=== PATIENT | female | born 1930 | race Caucasian/White ===

== ENCOUNTER 2017-03-18 09:59 | Inpatient (IN) ==
--- NOTE | 2017-03-18 10:29 | Emergency Department Note ---
Disposition Clinical Impression: Hypoxia, Influenza, Thyroid nodule Pneumonia Qualifiers: Pneumonia type: due to unspecified organism Laterality: unspecified laterality Lung location: unspecified part of lung Qualified Code(s): J18.9 - Pneumonia, unspecified organism UTI (urinary tract infection) Qualifiers: Urinary tract infection type: site unspecified Hematuria presence: without hematuria Qualified Code(s): N39.0 - Urinary tract infection, site not specified Disposition: Admitted As Inpatient Condition: Fair Time of Disposition: 13:57 General Adult HPI - General Chief complaint: ED Fever Stated complaint: MEKA,Congestion,Nausea Time Seen by Provider: 03/18/17 10:20 Source: patient Mode of arrival: ambulatory Limitations: no limitations Nursing Notes Reviewed: Yes Vital Signs Reviewed: Yes - History of Present Illness HPI Narrative: 86-year-old female otherwise healthy presents for evaluation of shortness of breath and congestion. Patient states that she has had upper respiratory congestion and runny nose for the past 3 or 4 days. Patient states she has had subjective fevers. States she feels warm. Patient states that she feels more congested. Denies any chest pain. Reports some shortness of breath related to congestion. No cough. States that she does have sick contacts with the flu. Patient denies any vomiting but states that she has felt nauseous at times. Patient denies any abdominal pain. States she is able to tolerate an oral diet. Pain Scale: 0 - Related Data Home Medications Medication Instructions Recorded Confirmed Amiloride/Hydrochlorothiazide 1 tab PO DAILY 03/18/17 03/18/17 [Amiloride HCl-Hctz 5-50 mg Tab] Aspirin [Lo-Dose Aspirin EC] 81 mg PO DAILY 03/18/17 03/18/17 Ca/D3/Mag#11/Zinc/[employer]/Seth/Bor 1 tab PO BID 03/18/17 03/18/17 [Caltrate 600+D Plus Tablet] Cholecalciferol (D-3) [Vitamin D] 1,000 unit PO DAILY 03/18/17 03/18/17 Gabapentin [Neurontin] 100 mg PO HS 03/18/17 03/18/17 HYDROcodone/Acet 5/325 mg [[place] 1 tab PO TID PRN 03/18/17 03/18/17 5-325 mg] Meloxicam [Mobic] 15 mg PO DAILY 03/18/17 03/18/17 Potassium Chloride [Klor-Con 10 meq PO DAILY 03/18/17 03/18/17 Sprinkle] Vitamin B Complex [B Complex] 1 tab PO DAILY 03/18/17 03/18/17 Allergies Allergy/AdvReac Type Severity Reaction Status Date / Time No Known Allergies Allergy Verified 03/18/17 10:30 All systems ED: reviewed and negative except as stated. Constitutional: Reports: as per HPI, fever Eyes: Reports: as per HPI ENT ED: Reports: as per HPI, congestion Cardiovascular: Reports: as per HPI. Denies: chest pain Respiratory: Reports: as per HPI, dyspnea. Denies: cough Gastrointestinal: Reports: as per HPI, nausea. Denies: abdominal pain, vomiting Genitourinary: Reports: as per HPI Musculoskeletal: Reports: as per HPI Integumentary: Reports: as per HPI Neurological: Reports: as per HPI. Denies: weakness Psychiatric: Reports: as per HPI Endocrine: Reports: as per HPI Hematological/Lymphatic: Reports: as per HPI Past Medical History - Past Medical History Medical history: Reports: osteoporosis Surgical history: Reports: cholecystectomy, hip replacement, hysterectomy, thyroidectomy Psychiatric history: Reports: no psych history - Social History Smoking Status: Never smoker Smokeless Tobacco Status: No Alcohol use: Reports: none Drug use: Reports: none Physical Exam - General Limitations: no limitations General appearance: alert, in no apparent distress - Head Head exam: atraumatic, normocephalic, normal inspection - Eye Eye exam: Present: normal appearance, EOMI - ENT ENT exam: normal exam, mucous membranes moist - Neck Neck exam: Present: normal inspection - Chest Chest inspection: Present: normal inspection, symmetric chest wall rise - Respiratory Respiratory exam: Present: normal lung sounds bilaterally. Absent: respiratory distress - Cardiovascular Cardiovascular exam: Present: regular rate, normal rhythm. Absent: systolic murmur - Abdominal Exam Abdominal exam: Present: soft, Non-Tender - Extremities Exam Extremities exam: Present: normal inspection. Absent: pedal edema - Expanded Lower Extremity Exam Neurovascular/Tendon exam: Present: normal capillary refill - Neurological Exam Neurological exam: Present: alert, oriented X3, CN II-XII intact - Skin Skin exam: Present: warm, dry, intact, normal color Course Course Narrative: Patient seen and examined. Patient does not appear to be in any acute distress. Patient does not have a unremarkable past history. Patient reports congestion and URI symptoms for the past couple days. Patient is not requiring any oxygen supplementation. Patient will get a chest x-ray, EKG basic lab work. Disposition likely home. - Reevaluation(s) Reevaluation #1: Patient seen and examined. Saturation 89-91% on room air. Patient's not on oxygen at home. Patient will get a CT of the chest. Time: 11:12 Reevaluation #2: Patient seen and examined. Patient is resting comfortably. Patient's influenza A is positive. Patient is given Tamiflu. Patient also started on a gram of Rocephin IV given urinary tract findings. Time: 12:24 Vital Signs Temperature 98.9 F 03/18/17 10:13 Pulse Rate 92 03/18/17 10:13 Respiratory Rate 16 03/18/17 10:13 Blood Pressure 115/73 03/18/17 10:13 O2 Sat by Pulse Oximetry 93 03/18/17 10:13 Temperature 98.9 F 03/18/17 10:13 Pulse Rate 83 03/18/17 13:40 Respiratory Rate 20 03/18/17 14:15 Blood Pressure 142/80 03/18/17 14:15 O2 Sat by Pulse Oximetry 99 03/18/17 13:40 Oxygen Delivery Oxygen Delivery Nasal Cannula Medical Decision Making - MDM Narrative Medical decision making narrative: 86-year-old female presents for evaluation of dyspnea. Patient was hypoxic on room air. Patient is on have oxygen at home. Patient's EGD evaluation shows influenza A with suspected pneumonia. The patient's urinalysis also signs of infection. Patient was started on Rocephin as well as doxycycline. Patient was also given Tamiflu. Patient had a room air trial and was hypoxic to 83%. Given the fact the patient does not require oxygen at baseline and has no oxygen at home patient will be admitted to the hospitalist service for further care and monitoring. - Lab Data Lab results reviewed: Yes I reviewed the patient's lab results. Result diagrams: 03/18/17 10:34 03/18/17 10:34 Lab Results 03/18/17 03/18/17 03/18/17 Range/Units 10:34 10:34 10:34 WBC 13.1 H (4.3-11.1) K/mcL RBC 4.92 (3.82-4.97) M/mcL Hgb 15.0 (11.5-15.4) g/dL Hct 45.0 H (35.3-44.9) % MCV 91.5 (83.0-100.0) fL MCH 30.5 (28.0-33.3) pg MCHC 33.3 (31.6-35.5) g/dL RDW 13.4 (11.5-14.5) % Plt Count 272 (140-400) K/mcL MPV 8.9 L (9.4-12.4) fL Immature Gran % 0.8 (0-4) % Seg Neutrophils % 87.0 % Lymphocytes % 5.7 % Monocytes % 6.1 % Eosinophils % 0.1 % Basophils % 0.3 % Neutrophils # 11.4 H (1.6-8.9) K/mcL Lymphocytes # 0.8 (0.6-4.6) K/mcL Monocytes # 0.8 (0.0-1.3) K/mcL Eosinophils # 0.0 (0.0-0.6) K/mcL Basophils # 0.0 (0.0-0.2) K/mcL Sodium 135 L (136-145) mEq/L Potassium 3.4 L (3.5-5.1) mEq/L Chloride 96 L (98-107) mEq/L Carbon Dioxide 29 (23-29) mEq/L BUN 17 (8-23) mg/dL Creatinine 0.85 (0.60-1.20) mg/dL Est GFR ( Amer) > 60 (> 60) Est GFR (Non-Af Amer) > 60 (> 60) BUN/Creatinine Ratio 20 (6-26) Glucose 120 H (70-105) mg/dL Calculated Osmolality 283 (280-300) Calcium 9.9 (8.6-10.3) mg/dL Troponin I < 0.03 (< 0.04) ng/mL B-Natriuretic Peptide (Less than 100) pg/mL Urine Color (Yellow) Urine Clarity (Clear) Urine pH (5.0-8.0) pH Units Ur Specific [place] (1.010-1.025) Urine Protein (Neg-Trace) mg/dL Urine Glucose (UA) (Normal) mg/dL Urine Ketones (Negative) mg/dL Urine Blood (Negative) Urine Nitrite (Negative) Urine Bilirubin (Negative) Urine Urobilinogen (Normal) mg/dL Ur Leukocyte Esterase (Negative) Urine Microscopic RBC (0-3) per hpf Urine Microscopic WBC (0-3) per hpf Ur Squamous Epith Cells (None-Few) per lpf Urine Bacteria (None-Few) per hpf 03/18/17 03/18/17 Range/Units 10:34 11:41 WBC (4.3-11.1) K/mcL RBC (3.82-4.97) M/mcL Hgb (11.5-15.4) g/dL Hct (35.3-44.9) % MCV (83.0-100.0) fL MCH (28.0-33.3) pg MCHC (31.6-35.5) g/dL RDW (11.5-14.5) % Plt Count (140-400) K/mcL MPV (9.4-12.4) fL Immature Gran % (0-4) % Seg Neutrophils % % Lymphocytes % % Monocytes % % Eosinophils % % Basophils % % Neutrophils # (1.6-8.9) K/mcL Lymphocytes # (0.6-4.6) K/mcL Monocytes # (0.0-1.3) K/mcL Eosinophils # (0.0-0.6) K/mcL Basophils # (0.0-0.2) K/mcL Sodium (136-145) mEq/L Potassium (3.5-5.1) mEq/L Chloride (98-107) mEq/L Carbon Dioxide (23-29) mEq/L BUN (8-23) mg/dL Creatinine (0.60-1.20) mg/dL Est GFR ( Amer) (> 60) Est GFR (Non-Af Amer) (> 60) BUN/Creatinine Ratio (6-26) Glucose (70-105) mg/dL Calculated Osmolality (280-300) Calcium (8.6-10.3) mg/dL Troponin I (< 0.04) ng/mL B-Natriuretic Peptide 137 H (Less than 100) pg/mL Urine Color Dark Yellow (Yellow) Urine Clarity Cloudy A (Clear) Urine pH 6.0 (5.0-8.0) pH Units Ur Specific [place] 1.024 (1.010-1.025) Urine Protein 30 H (Neg-Trace) mg/dL Urine Glucose (UA) Normal (Normal) mg/dL Urine Ketones 40 H (Negative) mg/dL Urine Blood Large H (Negative) Urine Nitrite Positive A (Negative) Urine Bilirubin Moderate H (Negative) Urine Urobilinogen Normal (Normal) mg/dL Ur Leukocyte Esterase Moderate H (Negative) Urine Microscopic RBC 15-30 H (0-3) per hpf Urine Microscopic WBC TNTC H (0-3) per hpf Ur Squamous Epith Cells Many H (None-Few) per lpf Urine Bacteria Many H (None-Few) per hpf - Radiology Data Radiology results reviewed: Yes I reviewed the patient's radiology results. Chest X-Ray 03/18/17 10:26 IMPRESSION: No acute cardiopulmonary disease. D/ / John Webber MD / John Webber MD Interpreting Provider: John Webber MD Chest CTA 03/18/17 11:11 IMPRESSION: 1. No CT evidence of a pulmonary embolism. 2. Nonspecific elevation of the right hemidiaphragm causing chronic compressive atelectasis within the right middle and right lower lobes. 3. Additional airspace consolidation within the inferior lingula and basilar aspect of left lower lobe likely reflects atelectasis, less likely pneumonia. 4. Scattered nonspecific ground-glass opacity throughout both lungs, with a mosaic attenuation, could represent either atelectasis, asymmetric edema, or possibly chronic small airways disease. 5. Heterogeneous enlarged right thyroid lobe containing a 2.5 cm heterogeneous low-attenuation nodule. Suggest further characterization with a follow-up thyroid ultrasound, as advised below. RECOMMENDATIONS: Managing Incidental Thyroid Nodule Detected at CT or MRI or US 1. Further evaluation by thyroid Ultrasound recommended for these incidental nodules: Patient Age 18 years or less - Any nodule. Patient Age 19-34 years old - Nodule 1 cm in size or greater PATIENT AGE 35 YEARS OR MORE - NODULE 1.5 CM IN SIZE OR GREATER 2. Follow up thyroid ultrasound also recommend in these scenarios -Solitary nodule with high risk imaging features (locally invasive nodule or suspicious lymph nodes) -Any nodule in a heterogeneous enlarged thyroid gland 3. NO further imaging is recommended in the following scenarios -No f/u imaging is recommended for ITNs not meeting the above criteria. -No US or f/u recommended for ITNs without high risk features in pts. with limited life expectancy or significant co-morbidities, unless clinically warranted. Note: These recommendations do not apply to pts. w/ increased risk for thyroid cancer or pts. with symptomatic thyroid disease. Recommendations for f/u of Incidental Thyroid Nodules (ITN) found on CT, MR, NM and Extrathyroidal US are based upon the ACR white paper and Srinivasan 3-tiered system for managing ITNs: J Am Areli Radiol. 2015 Apr;12(2): 143-50 D/ / 03/18/2017 13:11:37 Michael Stokes MD / allen Interpreting Provider: Michael Stokes MD - EKG Data EKG #1 EKG shows normal: sinus rhythm Rate: normal Rhythm: NSR [place]/QRS: left axis deviation Q waves: aVR Interpretation: no acute changes, nonspecific ST-T wave changes S.[email or web address] - [email or web address] Situation: Demographics Background: Presenting Complaint Assessment: Vital Signs, Course and respsone to treatment, Patient/Family Expectation Recommendation: Barrier(s) to disposition, Recommendation based on pending studies, treatments, or consults S.[email or web address] Report Given to: Dr. Connor PenningtonAMeagan Repor Time: 13:56
[2017-03-18 10:39] LABS: Basophils % 0.3 %; Eosinophils % 0.1 %; Immature Granulocytes % 0.8 % (0-4); Lymphocytes # 0.8 K/mcL (0.6-4.6); Lymphocytes % 5.7 %; Mean Corpuscular HGB Conc 33.3 g/dL (31.6-35.5); Mean Corpuscular Hemoglobin 30.5 pg (28.0-33.3); Mean Corpuscular Volume 91.5 fL (83.0-100.0); Mean Platelet Volume 8.9 fL (9.4-12.4); Monocytes # 0.8 K/mcL (0.0-1.3); Monocytes % 6.1 %; Neutrophils # 11.4 K/mcL (1.6-8.9); Platelet Count 272 K/mcL (140-400); Red Blood Count 4.92 M/mcL (3.82-4.97); Red Cell Distribution Width 13.4 % (11.5-14.5)
[2017-03-18 10:56] LABS: BUN/Creatinine Ratio 20 (6-26); Blood Urea Nitrogen 17 mg/dL (8-23); Calcium 9.9 mg/dL (8.6-10.3); Carbon Dioxide 29 mEq/L (23-29); Chloride 96 mEq/L (98-107); Glucose 120 mg/dL (70-105); Osmolality,Calculated 283 (280-300); Potassium 3.4 mEq/L (3.5-5.1); Sodium 135 mEq/L (136-145); eGFR For African Americans > 60 (> 60); eGFR For Non-African Americans > 60 (> 60)
[2017-03-18] MEDS ORDERED: 0.9 % Sodium Chloride 500 ML IVC ONE (11:11)
[2017-03-18 11:47] LABS: Bilirubin,Urine Moderate (Negative); Blood,Urine Large (Negative); Clarity,Urine Cloudy (Clear); Color,Urine Dark Yellow (Yellow); Glucose,Urine (UA) Normal (Normal); Ketones,Urine 40 mg/dL (Negative); Leukocyte Esterase,Urine Moderate (Negative); Nitrite,Urine Positive (Negative); Protein,Urine 30 mg/dL (Neg-Trace); Specific Gravity,Urine 1.024 (1.010-1.025); Urobilinogen,Urine Normal (Normal)
[2017-03-18 11:48] LABS: Bacteria,Urine Many per hpf (None-Few); Squamous Epithelial Cell,Urine Many per lpf (None-Few); WBC,Urine TNTC per hpf (0-3)
[2017-03-18 12:00] LABS: RBC,Urine 15-30 per hpf (0-3)
[2017-03-18] MEDS ORDERED: cefTRIAXone 1,000 MG in Water for inj. (sterile) 20 ML 10 ML IVP ONE (12:08)
[2017-03-18] MEDS ORDERED: Ipratropium/Albuterol Neb 3 ML IH ONE (13:17)
[2017-03-18] MEDS ORDERED: Doxycycline 100 MG in 0.9 % Sodium Chloride Mini Bag 100 ML IVPB ONE (13:17)
--- NOTE | 2017-03-18 15:25 | Internal Med History&Physical ---
Date of Encounter: 03/18/17 Time of Encounter: 15:00 Assessment and Plan (1) Hypoxia Current visit: Yes Status: Acute Pt requiring supplemental 02, does not wear 02 normally. Currently with pneumonia and influenza Titrate as needed to maintain sats > 92%. (2) Influenza Current visit: Yes Status: Acute Pt reports 3-4 day history of overall "not feeling well", rhinorrhea, frontal headache, bilateral lacrimation. Pt reports feeling hot yesterday, but denies taking temperature or fever. She denies body aches, chills. Onset of nausea today, no emesis. Positive for Influenza A. Will not start Tamiflu due to length of time from onset to presentation and diagnosis. (3) Pneumonia Current visit: Yes Status: Acute Pt with probable pneumonia within the inferior lingula LLL. Lungs are clear and diminished throughout. Pt with rhinorrhea, lacrimation, and frontal headache. Pt also positive for flu A. Pt with acute respiratory failure, is requiring supplemental 02. Pt on Rocephin for UTI. She has not been hospitalized so this is CAP. Mild leukocytosis, no fever, she denies fever at home. Duonebs scheduled. Continue IV antibiotics 02 as needed to maintain sats > 92%. Chest X-Ray 03/18/17 10:26 IMPRESSION: No acute cardiopulmonary disease. D/ / John Webber MD / John Webber MD Interpreting Provider: John Webber MD Chest CTA 03/18/17 11:11 IMPRESSION: 1. No CT evidence of a pulmonary embolism. 2. Nonspecific elevation of the right hemidiaphragm causing chronic compressive atelectasis within the right middle and right lower lobes. 3. Additional airspace consolidation within the inferior lingula and basilar aspect of left lower lobe likely reflects atelectasis, less likely pneumonia. 4. Scattered nonspecific ground-glass opacity throughout both lungs, with a mosaic attenuation, could represent either atelectasis, asymmetric edema, or possibly chronic small airways disease. 5. Heterogeneous enlarged right thyroid lobe containing a 2.5 cm heterogeneous low-attenuation nodule. Suggest further characterization with a follow-up thyroid ultrasound, as advised below. RECOMMENDATIONS: Managing Incidental Thyroid Nodule Detected at CT or MRI or US 1. Further evaluation by thyroid Ultrasound recommended for these incidental nodules: Patient Age 18 years or less - Any nodule. Patient Age 19-34 years old - Nodule 1 cm in size or greater PATIENT AGE 35 YEARS OR MORE - NODULE 1.5 CM IN SIZE OR GREATER 2. Follow up thyroid ultrasound also recommend in these scenarios -Solitary nodule with high risk imaging features (locally invasive nodule or suspicious lymph nodes) -Any nodule in a heterogeneous enlarged thyroid gland 3. NO further imaging is recommended in the following scenarios -No f/u imaging is recommended for ITNs not meeting the above criteria. -No US or f/u recommended for ITNs without high risk features in pts. with limited life expectancy or significant co-morbidities, unless clinically warranted. Note: These recommendations do not apply to pts. w/ increased risk for thyroid cancer or pts. with symptomatic thyroid disease. Recommendations for f/u of Incidental Thyroid Nodules (ITN) found on CT, MR, NM and Extrathyroidal US are based upon the ACR white paper and Srinivasan 3-tiered system for managing ITNs: J Am Areli Radiol. 2015 Apr;12(2): 143-50 D/ : / 03/18/2017 13:11:37 Michael Stokes MD / allen Interpreting Provider: Michael Stokes MD Qualifiers: Pneumonia type: due to unspecified organism Laterality: unspecified laterality Lung location: unspecified part of lung Qualified Code(s): J18.9 - Pneumonia, unspecified organism (4) UTI (urinary tract infection) Current visit: Yes Status: Acute Urine positive for UTI. Pt denies symptoms. Rocephin 1 gram IV Culture pending, adjust antibiotic as needed based on sensitivity results. Qualifiers: Urinary tract infection type: site unspecified Hematuria presence: without hematuria Qualified Code(s): N39.0 - Urinary tract infection, site not specified (5) Thyroid nodule Current visit: Yes Status: Acute 2.5 cm nodule found on CT chest. Pt reports prior thyroid surgery but is unable to remember what it was. It is defined as a heterogeneous low-attenuation nodule. Suggest further characterization with a follow-up thyroid ultrasound. (6) DVT prophylaxis Current visit: Yes Status: Acute Heparin SQ BID Internal Medicine - H&P: HPI History of present illness: Ms. Magana is a 86 year old female Past Med Surg Social Fam HX - Past Medical History Medical history: osteoporosis Psychiatric history: no psych history - Past Surgical History Surgical History: cholecystectomy, hip replacement, hysterectomy, thyroidectomy - Social History Smoking Status: Never smoker Smokeless Tobacco Status: No Alcohol use: none Drug use: none - Family History Mother Living Status: Hx Family Cardiac Disorders: Yes Hx Family Endocrine Disorder: Yes Internal Medicine - H&P: Meds Amiloride/Hydrochlorothiazide [Amiloride HCl-Hctz 5-50 mg Tab] 1 tab PO DAILY [History] Aspirin [Lo-Dose Aspirin EC] 81 mg PO DAILY 03/18/17 [History] Ca/D3/Mag#11/Zinc/[employer]/Seth/Bor [Caltrate 600+D Plus Tablet] 1 tab PO BID [History] Cholecalciferol (D-3) [Vitamin D] 1,000 unit PO DAILY 03/18/17 [History] Gabapentin [Neurontin] 100 mg PO HS 03/18/17 [History] HYDROcodone/Acet 5/325 mg [[place] 5-325 mg] 1 tab PO TID PRN 03/18/17 [History] Meloxicam [Mobic] 15 mg PO DAILY 03/18/17 [History] Potassium Chloride [Klor-Con Sprinkle] 10 meq PO DAILY 03/18/17 [History] Vitamin B Complex [B Complex] 1 tab PO DAILY 03/18/17 [History] 3 Allergy/AdvReac Type Severity Reaction Status Date / Time No Known Allergies Allergy Verified 03/18/17 10:30 All Systems PM: A 10-system review of systems was performed and is negative for pertinent findings except as documented above in the HPI. - Constitutional Constitutional: fatigue, malaise - EENT Eyes: no change in vision, no pain Ears: no ear pain, no tinnitus Nose, mouth and throat: nasal congestion, nasal discharge, post-nasal drip, sinus pain, sinus pressure, no facial pain, no hoarseness, no nose pain, no sore throat - Cardiovascular Cardiovascular ROS IM: no dyspnea, no lightheadedness, no palpitations - Respiratory Respiratory: chest congestion, no hemoptysis, no dyspnea on exertion, no excessive phlegm production, no pain with cough - Gastrointestinal Gastrointestinal: nausea, no constipation, no cramping, no diarrhea, no heartburn - Genitourinary Genitourinary: no dysuria, no urinary frequency, no urinary hesitancy, no urinary incontinence, no urinary urgency - Musculoskeletal Musculoskeletal ROS IM: myalgias, no back pain, no muscle weakness, no numbness , no stiffness - Neurological Neurological ROS: headache(s), no frequent falls, no numbness, no tingling, no weakness - Constitutional Vitals: Temp Pulse Resp BP Pulse Ox 98.9 F 83 20 142/80 99 03/18/17 10:13 03/18/17 13:40 03/18/17 14:15 03/18/17 14:15 03/18/17 13:40 General appearance: Present: cooperative, A&O X 3, pleasant, no acute distress, answers questions appropriately - Head Head exam: Present: atraumatic, normal inspection, normocephalic - Eye Eye exam: Present: normal appearance, conjuntiva pink, sclera anicteric - Neck Neck exam general surgery: Present: normal inspection, supple, trachea midline. Absent: lymphadenopathy, tenderness, thyromegaly - Respiratory Respiratory exam: Present: CTAB. Absent: accessory muscle use, chest wall tenderness, rales, respiratory distress, rhonchi, wheezes - Cardiovascular Cardiovascular exam: Present: RRR, +S1, +S2. Absent: diastolic murmur, gallop, rubs, systolic murmur - GI/Abdominal GI/Abdominal exam: Present: normal bowel sounds, soft. Absent: distended, hepatomegaly, tenderness - Extremities Exam Extremities exam: Present: normal capillary refill, normal inspection, warm, radial pulses palpable and symmetrical. Absent: calf tenderness, cyanotic, pedal edema, tenderness - Neurological Exam Neurological exam: Present: alert, oriented X3, no focal deficits. Absent: facial droop, speech deficit - Skin Skin exam: Present: dry, intact, normal color, warm. Absent: rash Internal Med - H&P Results - Labs CBC & Chem 7: 03/18/17 10:34 03/18/17 10:34
[2017-03-18] MEDS ORDERED: MOM Conc 10 ML UD.LIQ PO PRN (16:12)
[2017-03-18] MEDS ORDERED: Ondansetron 4 MG/2 ML VIAL IVP PRN (16:12)
[2017-03-18] MEDS ORDERED: Acetaminophen 325 MG TABLET PO PRN (16:12)
[2017-03-18] MEDS ORDERED: Naloxone 0.4 MG/ML INJ IVP PRN (16:12)
[2017-03-18] MEDS ORDERED: Mag Hydrox/Al Hydrox/Simeth 30 ML UDC PO PRN (16:12)
[2017-03-18] MEDS ORDERED: *HR* HYDROcodone/Acet 5/325 mg TABLET PO PRN ×2 (16:16→17:18)
[2017-03-18] MEDS: Azithromycin 500 MG in D5% in Water 250 ML IVPB SCH (16:58)
[2017-03-18] MEDS: Gabapentin 100 MG CAPSULE PO SCH (19:34)
[2017-03-19 04:14] LABS: Basophils % 0.5 %; Eosinophils # 0.1 K/mcL (0.0-0.6); Hematocrit 40.6 % (35.3-44.9); Immature Granulocytes % 0.6 % (0-4); Lymphocytes # 1.1 K/mcL (0.6-4.6); Lymphocytes % 13.1 %; Mean Corpuscular HGB Conc 32.8 g/dL (31.6-35.5); Mean Corpuscular Hemoglobin 30.1 pg (28.0-33.3); Mean Corpuscular Volume 91.9 fL (83.0-100.0); Mean Platelet Volume 8.9 fL (9.4-12.4); Monocytes # 0.9 K/mcL (0.0-1.3); Monocytes % 11.2 %; Platelet Count 219 K/mcL (140-400); Red Blood Count 4.42 M/mcL (3.82-4.97); Red Cell Distribution Width 13.7 % (11.5-14.5); Segmented Neutrophils % 73.6 %
[2017-03-19 04:15] LABS: Hemoglobin 13.3 g/dL (11.5-15.4)
[2017-03-19 04:35] LABS: BUN/Creatinine Ratio 21 (6-26); Blood Urea Nitrogen 14 mg/dL (8-23); Calcium 8.8 mg/dL (8.6-10.3); Carbon Dioxide 32 mEq/L (23-29); Chloride 101 mEq/L (98-107); Glucose 86 mg/dL (70-105); Osmolality,Calculated 290 (280-300); Potassium 2.9 mEq/L (3.5-5.1); Sodium 140 mEq/L (136-145); eGFR For African Americans > 60 (> 60); eGFR For Non-African Americans > 60 (> 60)
[2017-03-19] MEDS: cefTRIAXone 1,000 MG in Water for inj. (sterile) 10 ML IVP SCH (07:47)
[2017-03-19] MEDS: Vitamin B Complex/Vit C/Vit E 1 EACH TABLET PO SCH (07:48)
[2017-03-19] MEDS: Aspirin Enteric Coated 81 MG Tablet PO SCH (07:48)
[2017-03-19] MEDS: Cholecalciferol (D-3) 1,000 UNIT TABLET PO SCH (07:48)
--- NOTE | 2017-03-19 15:39 | Internal Med Progress Note ---
Date of Encounter: 03/19/17 Time of Encounter: 15:36 - Assessment and plan (1) Hypoxia Current Visit: Yes Status: Acute Assessment and plan: resolved, now on room air (2) Influenza Current Visit: Yes Status: Acute Assessment and plan: doing well, not on tamiflu (3) Pneumonia Current Visit: Yes Status: Acute Assessment and plan: continue azithromycin and ceftriaxone Qualifiers: Pneumonia type: due to unspecified organism Laterality: unspecified laterality Lung location: unspecified part of lung Qualified Code(s): J18.9 - Pneumonia, unspecified organism (4) Thyroid nodule Current Visit: Yes Status: Chronic Assessment and plan: follow up with PCP (5) UTI (urinary tract infection) Current Visit: Yes Status: Acute Assessment and plan: UA shwed UTI, on ceftriaxone Qualifiers: Urinary tract infection type: site unspecified Hematuria presence: without hematuria Qualified Code(s): N39.0 - Urinary tract infection, site not specified (6) DVT prophylaxis Current Visit: Yes Status: Acute Assessment and plan: on heparin SC (7) Hypokalemia Current Visit: Yes Status: Acute Assessment and plan: repalced by oral lwill follow up am - Time Spent With Patient 25 - 35 minutes - Subjective Interval history: 86-year-old female otherwise healthy presents for evaluation of shortness of breath and congestion. Patient states that she has had upper respiratory congestion and runny nose for the past 3 or 4 days. patient stated that her son was sick from Flu weeks ago, then she started to cough. She feels much better now. she is on room air, afebrile. - Constitutional Vitals: Temp Pulse Resp BP Pulse Ox 98.5 F 73 16 131/84 92 03/19/17 15:28 03/19/17 15:28 03/19/17 15:28 03/19/17 15:28 03/19/17 15:28 General appearance: Present: cooperative, A&O X 3, pleasant, no acute distress, answers questions appropriately - Head Head exam: Present: normal inspection, normocephalic - Eye Eye exam: Present: normal appearance, PERRL - ENT ENT exam: Present: mucous membranes moist, normal exam, normal external ear exam - Respiratory Respiratory exam: Present: CTAB. Absent: accessory muscle use, rales, rhonchi, wheezes - Cardiovascular Cardiovascular exam: Present: RRR, +S1, +S2. Absent: diastolic murmur, gallop, rubs, systolic murmur - GI/Abdominal GI/Abdominal exam: Present: normal bowel sounds, soft, no peritoneal signs. Absent: distended, tenderness - Extremities Exam Extremities exam: Present: warm, radial pulses palpable and symmetrical. Absent : calf tenderness, cyanotic, pedal edema - Neurological Exam Neurological exam: Present: CN II-XII intact, oriented X3, no focal deficits. Absent: pronater drift, facial droop, speech deficit - Psychiatric Psychiatric exam: Present: normal affect, normal mood - Skin Skin exam: Present: dry, intact Internal Medicine: Result - Labs CBC & Chem 7: 03/19/17 03:57 03/19/17 03:57 Labs: Short CBC 03/19/17 Range/Units 03:57 WBC 8.2 (4.3-11.1) K/mcL Hgb 13.3 D (11.5-15.4) g/dL Hct 40.6 (35.3-44.9) % Plt Count 219 (140-400) K/mcL Neutrophils # 6.0 (1.6-8.9) K/mcL BMP 03/19/17 03:57 Sodium 140 Potassium 2.9 L Chloride 101 Carbon Dioxide 32 H BUN 14 Creatinine 0.66 Glucose 86 Calcium 8.8 Consult Discharge Plan - Plan Referrals: Angle Mendez CNP [Primary Care Provider] - 03/26/17 10:35 am (hospital f/u Diff in breathing, + flu)
[2017-03-19] MEDS: Potassium Chloride Elixir 20 MEQ/15 ML UDC PO SCH ×2 (15:58→19:56)
[2017-03-19] MEDS: Azithromycin 500 MG in D5% in Water 250 ML IVPB SCH (16:02)
--- NOTE | 2017-03-19 16:48 | Electrocardiograph Report ---
[address] [address] Test Date: 2017-03-18 Pat Name: Emmy Magana Department: 103 Room: 3B22 Gender: F Medication Reconciliation Technician: THANIA : 1930 Requested By: Justen Warner Order Number: [id number] Reading MD: Thiago Rodriguez MD Measurements Intervals [place] Rate: 82 P: 14 LA: 200 QRS: -26 QRSD: 88 T: 45 QT: 294 QTc: 332 Interpretive Statements SINUS RHYTHM BORDERLINE LEFT AXIS DEVIATION BASELINE ARTIFACT VOLTAGE CRITERIA FOR LVH Electronically Signed On 03-19-2017 16:46:57 EST by Thiago Rodriguez MD
[2017-03-19] MEDS: Gabapentin 100 MG CAPSULE PO SCH (19:56)
[2017-03-20 04:14] LABS: Basophils % 0.4 %; Eosinophils # 0.2 K/mcL (0.0-0.6); Eosinophils % 2.9 %; Hemoglobin 12.9 g/dL (11.5-15.4); Immature Granulocytes % 0.6 % (0-4); Lymphocytes # 1.8 K/mcL (0.6-4.6); Lymphocytes % 26.5 %; Mean Corpuscular HGB Conc 32.3 g/dL (31.6-35.5); Mean Corpuscular Hemoglobin 30.5 pg (28.0-33.3); Mean Corpuscular Volume 94.6 fL (83.0-100.0); Mean Platelet Volume 9.3 fL (9.4-12.4); Monocytes # 0.7 K/mcL (0.0-1.3); Monocytes % 10.3 %; Neutrophils # 4.1 K/mcL (1.6-8.9); Platelet Count 307 K/mcL (140-400); Red Blood Count 4.23 M/mcL (3.82-4.97); Red Cell Distribution Width 13.6 % (11.5-14.5); Segmented Neutrophils % 59.3 %
[2017-03-20 04:29] LABS: BUN/Creatinine Ratio 27 (6-26); Blood Urea Nitrogen 17 mg/dL (8-23); Carbon Dioxide 31 mEq/L (23-29); Chloride 104 mEq/L (98-107); Glucose 95 mg/dL (70-105); Magnesium 1.8 mg/dL (1.6-2.6); Osmolality,Calculated 291 (280-300); Potassium 3.8 mEq/L (3.5-5.1); Sodium 140 mEq/L (136-145); eGFR For African Americans > 60 (> 60); eGFR For Non-African Americans > 60 (> 60)
[2017-03-20] MEDS: Vitamin B Complex/Vit C/Vit E 1 EACH TABLET PO SCH (07:56)
[2017-03-20] MEDS: Aspirin Enteric Coated 81 MG Tablet PO SCH (07:56)
[2017-03-20] MEDS: cefTRIAXone 1,000 MG in Water for inj. (sterile) 10 ML IVP SCH (07:57)
[2017-03-20] MEDS: Potassium Chloride Elixir 20 MEQ/15 ML UDC PO SCH ×2 (07:57→21:32)
[2017-03-20] MEDS: Cholecalciferol (D-3) 1,000 UNIT TABLET PO SCH (07:57)
[2017-03-20] MEDS: Oseltamivir Phosphate 30 MG CAPSULE PO SCH ×2 (09:34→21:32)
--- NOTE | 2017-03-20 13:28 | Internal Med Progress Note ---
Date of Encounter: 03/20/17 Time of Encounter: 08:45 - Assessment and plan (1) Community acquired pneumonia due to influenza A virus Current Visit: Yes Status: Acute Assessment and plan: Chest CTA concerning for possible left lower lobe pneumonia. Influenza A+. WBC 13K. concern for possible bacterial component as well. Continue IV azithromycin , ceftriaxone. Start Tamiflu for influenza A. If clinically improving on and then stop ATB. (2) Influenza Current Visit: Yes Status: Acute Assessment and plan: Influenza A positive. Tamiflu started; to complete 5 day course. (3) Acute respiratory failure with hypoxia Current Visit: Yes Status: Acute Assessment and plan: Secondary to pneumonia and influenza. Initially required supplemental oxygen to maintain saturations. Now resolved; adequately oxygenating on room air. (4) UTI (urinary tract infection) Current Visit: Yes Status: Acute Assessment and plan: UA indicative UTI, on ceftriaxone. Urine cx pending Qualifiers: Urinary tract infection type: site unspecified Hematuria presence: without hematuria Qualified Code(s): N39.0 - Urinary tract infection, site not specified (5) Loose stools Current Visit: Yes Status: Acute Assessment and plan: Patient reports multiple loose stools. Since stool for C. difficile with recent ATB use. If negative can start PRN loperamide if stools persist. (6) Thyroid nodule Current Visit: Yes Status: Chronic Assessment and plan: follow up with PCP (7) DVT prophylaxis Current Visit: Yes Status: Acute Assessment and plan: on heparin SC - Subjective Interval history: See my exam bedside. Patient is new to me, information obtained from chart review and patient report.edside, patient is new to me. Information obtained from chart review and patient reprt. Sitting up in chair bedside. Says she feels pretty much the same, maybe a little better. Still with some myalgias, productive cough and she reports multiple loose, watery stools yesterday. No chest pain. No shortness of breath. - Constitutional Vitals: Temp Pulse Resp BP Pulse Ox 98.6 F 71 16 117/75 93 03/20/17 11:17 03/20/17 11:17 03/20/17 11:17 03/20/17 11:17 03/20/17 11:17 General appearance: Present: cooperative, A&O X 3, pleasant, no acute distress, answers questions appropriately - Head Head exam: Present: atraumatic, normocephalic - Eye Eye exam: Present: PERRL, conjuntiva pink, sclera anicteric Pupils: Present: PERRL - Neck Neck exam general surgery: Present: supple, trachea midline. Absent: lymphadenopathy - Respiratory Respiratory exam: Present: CTAB. Absent: accessory muscle use, rales, rhonchi, wheezes - Cardiovascular Cardiovascular exam: Present: RRR, +S1, +S2. Absent: diastolic murmur, gallop, rubs, systolic murmur - GI/Abdominal GI/Abdominal exam: Present: normal bowel sounds, soft, no peritoneal signs. Absent: distended, tenderness - Extremities Exam Extremities exam: Present: warm, radial pulses palpable and symmetrical. Absent : calf tenderness, cyanotic, pedal edema - Neurological Exam Neurological exam: Present: CN II-XII intact, oriented X3, no focal deficits. Absent: pronater drift, facial droop, speech deficit - Skin Skin exam: Present: dry, intact Internal Medicine: Result - Labs CBC & Chem 7: 03/20/17 03:22 03/20/17 03:22 Labs: Short CBC 03/20/17 Range/Units 03:22 WBC 6.9 (4.3-11.1) K/mcL Hgb 12.9 (11.5-15.4) g/dL Hct 40.0 (35.3-44.9) % Plt Count 307 (140-400) K/mcL Neutrophils # 4.1 (1.6-8.9) K/mcL BMP 03/20/17 03:22 Sodium 140 Potassium 3.8 D Chloride 104 Carbon Dioxide 31 H BUN 17 Creatinine 0.62 Glucose 95 Calcium 9.0 Consult Discharge Plan - Plan Referrals: Angle Mendez CNP [Primary Care Provider] - 03/26/17 10:35 am (hospital f/u Diff in breathing, + flu)
[2017-03-20] MEDS ORDERED: Azithromycin 500 MG in D5% in Water 250 ML IVPB SCH (17:00)
[2017-03-20] MEDS: Gabapentin 100 MG CAPSULE PO SCH (21:32)
[2017-03-21] MEDS: Aspirin Enteric Coated 81 MG Tablet PO SCH (10:18)
[2017-03-21] MEDS: Cholecalciferol (D-3) 1,000 UNIT TABLET PO SCH (10:18)
[2017-03-21] MEDS: Oseltamivir Phosphate 30 MG CAPSULE PO SCH (10:18)
[2017-03-21] MEDS: Vitamin B Complex/Vit C/Vit E 1 EACH TABLET PO SCH (10:18)
[2017-03-21] MEDS: cefTRIAXone 1,000 MG in Water for inj. (sterile) 10 ML IVP SCH (10:18)
[2017-03-21 11:47] VITALS: BP 132/80
--- NOTE | 2017-03-21 13:28 | Discharge Summary ---
Date of Encounter: 03/21/17 Time of Encounter: 13:21 - Discharge Diagnosis (1) Community acquired pneumonia due to influenza A virus Priority: Primary Status: Acute Comments: Chest CTA concerning for possible left lower lobe pneumonia. Resp PCR + for influenza A. WBC 13K and normalized. Treated with IV azithromycin, ceftriaxone and Tamiflu. Change ATB to Levaquin at discharge, to complete a total course of 7 days. Continue Tamiflu for total course of 5 days. (2) Acute respiratory failure with hypoxia Priority: Primary Status: Acute Comments: Secondary to pneumonia and influenza. Initially required supplemental oxygen to maintain saturations. Now resolved; adequately oxygenating on room air. (3) Influenza Priority: Primary Status: Acute Comments: Influenza A positive. Continue Tamiflu. (4) UTI (urinary tract infection) Priority: Primary Status: Acute Comments: UA indicative of UTI. No urine culture available. Received 2 doses IV ceftriaxone and patient. Discharge home on Levaquin for pneumonia which should treat UTI Qualifiers: Urinary tract infection type: site unspecified Hematuria presence: without hematuria Qualified Code(s): N39.0 - Urinary tract infection, site not specified (5) Loose stools Priority: Primary Status: Acute Comments: Likely secondary to IV ATB. C. difficile negative. PRN loperamide. (6) Thyroid nodule Priority: Secondary Status: Chronic Comments: Incidental finding; chest CTA with right thyroid lobe 2.5 cm nodule. Can follow up outpatient with PCP for thyroid ultrasound - Discharge Medications Prescriptions: Loperamide [Imodium] 2 mg PO Q4HR PRN #30 capsule PRN Reason: Diarrhea levoFLOXacin [Levaquin] 750 mg PO DAILY #8 tablet Oseltamivir Phosphate [Tamiflu] 30 mg PO BID #7 capsule Home Medications: Amiloride/Hydrochlorothiazide [Amiloride HCl-Hctz 5-50 mg Tab] 1 tab PO DAILY [History] Aspirin [Lo-Dose Aspirin EC] 81 mg PO DAILY 03/18/17 [History] Ca/D3/Mag#11/Zinc/Cook Starch/Seth/Bor [Caltrate 600+D Plus Tablet] 1 tab PO BID [History] Cholecalciferol (D-3) [Vitamin D] 1,000 unit PO DAILY 03/18/17 [History] Gabapentin [Neurontin] 100 mg PO HS 03/18/17 [History] HYDROcodone/Acet 5/325 mg [[place] 5-325 mg] 1 tab PO TID PRN 03/18/17 [History] Meloxicam [Mobic] 15 mg PO DAILY 03/18/17 [History] Potassium Chloride [Klor-Con Sprinkle] 10 meq PO DAILY 03/18/17 [History] Vitamin B Complex [B Complex] 1 tab PO DAILY 03/18/17 [History] Loperamide [Imodium] 2 mg PO Q4HR PRN #30 capsule 03/21/17 [Rx] Oseltamivir Phosphate [Tamiflu] 30 mg PO BID #7 capsule 03/21/17 [Rx] levoFLOXacin [Levaquin] 750 mg PO DAILY #8 tablet 03/21/17 [Rx] Allergies/Adverse Reactions: 3 Allergy/AdvReac Type Severity Reaction Status Date / Time No Known Allergies Allergy Verified 03/18/17 10:30 Date of admission: 03/20/17 13:39 Primary care physician: Angle Mendez CNP Discharging clinician: Jessie Carlos Anticipated date of discharge: 03/21/17 - Patient Status Disposition: Home, Self-Care Condition: Good Functional capacity at discharge: independent ambulation Overall status at discharge: patient is progressing back to baseline - Discharge Instructions Instructions: Oseltamivir (By mouth), Influenza (DC), Community-acquired Pneumonia (DC), Levofloxacin (By mouth) Follow Up With: Angle Mendez CNP [Primary Care Provider] - 03/26/17 10:35 am (hospital f/u Diff in breathing, + flu) - Diet and Activity Activity: increase activity as tolerated Diet: advance to your usual diet Interval History: Seen and examined at bedside; patient says she feels significantly improved and would like to go home today if possible. No chest pain, no shortness of breath. She had 2 loose stools overnight which she says is improved. Says she slipped while last night feels a little tired but overall improved. Hospital course: See assessment and plan for hospital course - Time Spent with Patient Total time spent providing and/or coordinating discharge services: - Constitutional Vitals: Temp Pulse Resp BP Pulse Ox 97.1 F L 83 17 132/80 91 03/21/17 11:46 03/21/17 11:46 03/21/17 11:46 03/21/17 11:46 03/21/17 11:46 General appearance: Present: cooperative, A&O X 3, pleasant, no acute distress, answers questions appropriately - Head Head exam: Present: atraumatic, normocephalic - Eye Eye exam: Present: PERRL, conjuntiva pink, sclera anicteric Pupils: Present: PERRL - Neck Neck exam general surgery: Present: supple, trachea midline. Absent: lymphadenopathy - Respiratory Respiratory exam: Present: CTAB. Absent: accessory muscle use, rales, rhonchi, wheezes - Cardiovascular Cardiovascular exam: Present: RRR, +S1, +S2. Absent: diastolic murmur, gallop, rubs, systolic murmur - GI/Abdominal GI/Abdominal exam: Present: normal bowel sounds, soft, no peritoneal signs. Absent: distended, tenderness - Extremities Exam Extremities exam: Present: warm, radial pulses palpable and symmetrical. Absent : calf tenderness, cyanotic, pedal edema - Neurological Exam Neurological exam: Present: CN II-XII intact, oriented X3, no focal deficits. Absent: pronater drift, facial droop, speech deficit - Skin Skin exam: Present: dry, intact
== END 2017-03-21 16:05 | disposition home or self-care (01) | DRG 193 ==
LOC: 3BNU 09:59 → EMEROO 09:59 → SUATTDRO 14:01 → 3BNU 14:24
PROVIDERS: ADMIT Internal Medicine Nephrology; ATTEND Hospitalist

== ENCOUNTER 2017-11-09 13:35 | Observation (INO) ==
--- NOTE | 2017-11-09 13:48 | Emergency Department Note ---
Disposition Clinical Impression: Hypoxia CHF exacerbation Qualifiers: Heart failure type: unspecified Qualified Code(s): I50.9 - Heart failure, unspecified Disposition: Admitted As Inpatient Condition: Good Referrals: Angle Mendez CNP [Primary Care Provider] - Forms: ED Satisfaction Letter SOB HPI - General Chief Complaint: ED Shortness of Breath/Dyspnea Stated Complaint: sob Time Seen by Provider: 11/09/17 13:39 Source: patient Mode of arrival: private vehicle Limitations: no limitations Nursing Notes Reviewed: Yes Vital Signs Reviewed: Yes - History of Present Illness 87-year-old female history of hypertension who presents to the ER with a complaint of shortness of breath. Patient states she has had shortness of breath for the last 2 weeks. Reports it is worse whenever she lays flat at night. Denies a prior history of congestive heart failure. She reports that she has had some swelling in her lower extremities as well. She denies any fevers, cough, chest pain, nausea, vomiting, diarrhea. No history of CAD, NC, DVT or PE. She reports that she has been losing her voice over the last several days. Denies any sore throat or runny nose. No other complaints. Pt Subjective Complaint: shortness of breath Onset (ago): week(s) Severity: mild Consistency/Duration: intermittent Improves with: nothing Worsens with: lying flat Known history of: congestive heart failure Associated symptoms: Reports: orthopnea. Denies: chest pain, fever, cough Treatment prior to arrival: none Cough present: No Sputum production: No - Related Data Home oxygen amount: none Home Medications Medication Instructions Recorded Confirmed Amiloride/Hydrochlorothiazide 1 tab PO DAILY 03/18/17 03/18/17 [Amiloride HCl-Hctz 5-50 mg Tab] Aspirin [Lo-Dose Aspirin EC] 81 mg PO DAILY 03/18/17 03/18/17 Ca/D3/Mag#11/Zinc/Nuclear Medicine Chief Technologist/Seth/Bor 1 tab PO BID 03/18/17 03/18/17 [Caltrate 600+D Plus Tablet] Cholecalciferol (D-3) [Vitamin D] 1,000 unit PO DAILY 03/18/17 03/18/17 Gabapentin [Neurontin] 100 mg PO HS 03/18/17 03/18/17 HYDROcodone/Acet 5/325 mg [[place] 1 tab PO TID PRN 03/18/17 03/18/17 5-325 mg] Meloxicam [Mobic] 15 mg PO DAILY 03/18/17 03/18/17 Potassium Chloride [Klor-Con 10 meq PO DAILY 03/18/17 03/18/17 Sprinkle] Vitamin B Complex [B Complex] 1 tab PO DAILY 03/18/17 03/18/17 Previous Rx's Medication Instructions Recorded Loperamide [Imodium] 2 mg PO Q4HR PRN #30 capsule 03/21/17 Oseltamivir Phosphate [Tamiflu] 30 mg PO BID #7 capsule 03/21/17 levoFLOXacin [Levaquin] 750 mg PO DAILY #8 tablet 03/21/17 Allergies Allergy/AdvReac Type Severity Reaction Status Date / Time No Known Allergies Allergy Verified 03/18/17 10:30 All systems ED: reviewed and negative except as stated. Constitutional: Denies: fever Cardiovascular: Reports: orthopnea. Denies: chest pain Respiratory: Reports: dyspnea. Denies: cough Gastrointestinal: Denies: abdominal pain, nausea, vomiting, diarrhea Past Medical History - Past Medical History Attestation: Yes The following information was validated with the patient. Source: patient Medical history: Reports: osteoporosis Surgical history: Reports: cholecystectomy, hip replacement, hysterectomy, thyroidectomy Psychiatric history: Reports: no psych history - Social History Smoking Status: Never smoker Smokeless Tobacco Status: No Alcohol use: Reports: none Drug use: Reports: none Physical Exam - General Limitations: no limitations General appearance: alert, in no apparent distress - Head Head exam: atraumatic, normocephalic - Eye Eye exam: Present: normal appearance - ENT ENT exam: normal exam - Neck Neck exam: Present: normal inspection - Chest Chest inspection: Present: normal inspection, symmetric chest wall rise - Respiratory Respiratory exam: Present: other (Diminished bilaterally) - Cardiovascular Cardiovascular exam: Present: regular rate, normal rhythm, normal heart sounds - Abdominal Exam Abdominal exam: Present: soft, Non-Tender. Absent: tenderness, distention, guarding, rigidity - Extremities Exam Extremities exam: Present: normal inspection, full ROM - Expanded Upper Extremity Exam Shoulder exam: Present: normal inspection, full ROM Arm exam: Present: normal inspection, full ROM Elbow exam: Present: normal inspection, full ROM Forearm/Wrist exam: Present: normal inspection, full ROM Hand exam: Present: normal inspection, full ROM - Expanded Lower Extremity Exam Hip/Pelvis exam: Present: normal inspection, full ROM Upper leg exam: Present: normal inspection, full ROM Knee exam: Present: normal inspection, full ROM Lower leg exam: Present: normal inspection, full ROM, swelling (1+ bilateral lower extremity pitting edema) Ankle exam: Present: normal inspection, full ROM Foot/toe exam: Present: normal inspection, full ROM - Skin Skin exam: Present: warm, dry Course Course Narrative: Patient seen and examined. Vital signs reviewed. She was noted to be hypoxic on presentation at 86% on room air. She is resting comfortably on 2 L nasal cannula. Plan for EKG, chest x-ray, labs. She will require admission for at least her hypoxia with suspected underlying congestive heart failure. Vital Signs Temperature 98.8 F 11/09/17 13:36 Pulse Rate 69 11/09/17 13:36 Respiratory Rate 20 11/09/17 13:36 Blood Pressure 177/80 11/09/17 13:36 O2 Sat by Pulse Oximetry 86 11/09/17 13:36 Temperature 98.8 F 11/09/17 13:43 Pulse Rate 69 11/09/17 14:36 Respiratory Rate 20 11/09/17 13:43 Blood Pressure 178/70 11/09/17 14:36 O2 Sat by Pulse Oximetry 91 11/09/17 14:36 Oxygen Delivery Oxygen Delivery Nasal Cannula Shortness of Breath/Dyspnea - [facility] Narrative Medical decision making narrative: 87-year-old female with 2 weeks of orthopnea noted to be hypoxic upon arrival. EKG is sinus without ischemic changes. Chest x-ray with small effusions. Elevated BNP. Resting comfortably on nasal cannula. 40 mg Lasix given. Admitted to the hospitalist service. - Lab Data Lab results reviewed: Yes I reviewed the patient's lab results. Result diagrams: 11/09/17 14:39 11/09/17 13:39 Lab Results 11/09/17 11/09/17 11/09/17 Range/Units 13:39 13:39 14:39 WBC 6.9 (4.3-11.1) K/mcL RBC 4.11 (3.82-4.97) M/mcL Hgb 12.9 (11.5-15.4) g/dL Hct 39.7 (35.3-44.9) % MCV 96.6 (83.0-100.0) fL MCH 31.4 (28.0-33.3) pg MCHC 32.5 (31.6-35.5) g/dL RDW 14.4 (11.5-14.5) % Plt Count 259 (140-400) K/mcL MPV 9.3 L (9.4-12.4) fL Immature Gran % 0.4 (0-4) % Seg Neutrophils % 66.9 % Lymphocytes % 23.1 % Monocytes % 5.6 % Eosinophils % 3.6 % Basophils % 0.4 % Neutrophils # 4.6 (1.6-8.9) K/mcL Lymphocytes # 1.6 (0.6-4.6) K/mcL Monocytes # 0.4 (0.0-1.3) K/mcL Eosinophils # 0.3 (0.0-0.6) K/mcL Basophils # 0.0 (0.0-0.2) K/mcL Sodium 141 (136-145) mEq/L Potassium 3.7 (3.5-5.1) mEq/L Chloride 105 (98-107) mEq/L Carbon Dioxide 29 (23-29) mEq/L BUN 16 (8-23) mg/dL Creatinine 0.74 (0.60-1.20) mg/dL Est GFR ( Amer) > 60 (> 60) Est GFR (Non-Af Amer) > 60 (> 60) BUN/Creatinine Ratio 22 (6-26) Glucose 89 (70-105) mg/dL Calculated Osmolality 293 (280-300) Calcium 9.5 (8.6-10.3) mg/dL Troponin I < 0.03 (< 0.04) ng/mL B-Natriuretic Peptide 345 H (Less than 100) pg/mL - Radiology Data Radiology results reviewed: Yes I reviewed the patient's radiology results. Chest X-Ray 11/09/17 13:39 IMPRESSION: Small pleural effusions with bibasilar atelectasis. D/ / Juan Jose Romo MD / Juan Jose Romo MD Interpreting Provider: Juan Jose Romo MD - EKG Data EKG attestation: Yes I reviewed and interpreted this EKG. EKG results narrative: EKG demonstrates sinus rhythm rate 66 bpm. Normal axis. Normal intervals. Normal R-wave progression. No gross ST elevations or depressions. No acute ischemic findings. No significant changes from previous EKG dated 03/18/17. S.B.A.R. - S.B.A.R. Situation: Demographics, MOA Background: Presenting Complaint, Relevant PMH, Meds, & Allergies Assessment: Vital Signs, Course and respsone to treatment, Exam Concerns, Patient/Family Expectation, Pertinant Lab Results Recommendation: Barrier(s) to disposition, Recommendation based on pending studies, treatments, or consults S.B.A.R. Report Given to: Dr. Flores Attestation Statement - Attestation Attestation: I, Rene James DO, examined this patient [id number] and my medical decision-making was reviewed with Dr. Rohit Giles, Resident Physician. I agree with the documented findings, disposition and treatment plan as described except to the extent set forth below. Please see my progress notes for details.
--- NOTE | 2017-11-09 14:13 | Emergency Department Note ---
Disposition Clinical Impression: Hypoxia CHF exacerbation Qualifiers: Heart failure type: unspecified Qualified Code(s): I50.9 - Heart failure, unspecified Disposition: Admitted As Inpatient Condition: Fair Referrals: Angle Mendez CNP [Primary Care Provider] - Forms: ED Satisfaction Letter Time of Disposition: 15:33 General Adult HPI - General Chief complaint: ED Shortness of Breath/Dyspnea Stated complaint: sob Time Seen by Provider: 11/09/17 13:39 Source: patient Mode of arrival: private vehicle Limitations: no limitations - History of Present Illness Pain Scale: 0 - Related Data Home Medications Medication Instructions Recorded Confirmed Amiloride/Hydrochlorothiazide 1 tab PO DAILY 03/18/17 03/18/17 [Amiloride HCl-Hctz 5-50 mg Tab] Aspirin [Lo-Dose Aspirin EC] 81 mg PO DAILY 03/18/17 03/18/17 Ca/D3/Mag#11/Zinc/Carroting Machine Operator/Seth/Bor 1 tab PO BID 03/18/17 03/18/17 [Caltrate 600+D Plus Tablet] Cholecalciferol (D-3) [Vitamin D] 1,000 unit PO DAILY 03/18/17 03/18/17 Gabapentin [Neurontin] 100 mg PO HS 03/18/17 03/18/17 HYDROcodone/Acet 5/325 mg [[place] 1 tab PO TID PRN 03/18/17 03/18/17 5-325 mg] Meloxicam [Mobic] 15 mg PO DAILY 03/18/17 03/18/17 Potassium Chloride [Klor-Con 10 meq PO DAILY 03/18/17 03/18/17 Sprinkle] Vitamin B Complex [B Complex] 1 tab PO DAILY 03/18/17 03/18/17 Previous Rx's Medication Instructions Recorded Loperamide [Imodium] 2 mg PO Q4HR PRN #30 capsule 03/21/17 Oseltamivir Phosphate [Tamiflu] 30 mg PO BID #7 capsule 03/21/17 levoFLOXacin [Levaquin] 750 mg PO DAILY #8 tablet 03/21/17 Allergies Allergy/AdvReac Type Severity Reaction Status Date / Time No Known Allergies Allergy Verified 03/18/17 10:30 Constitutional: Denies: fever Cardiovascular: Reports: orthopnea. Denies: chest pain Respiratory: Reports: dyspnea. Denies: cough Gastrointestinal: Denies: abdominal pain, nausea, vomiting, diarrhea Past Medical History - Past Medical History Medical history: Reports: osteoporosis Surgical history: Reports: cholecystectomy, hip replacement, hysterectomy, thyroidectomy Psychiatric history: Reports: no psych history - Social History Smoking Status: Never smoker Smokeless Tobacco Status: No Alcohol use: Reports: none Drug use: Reports: none Physical Exam - General Limitations: no limitations General appearance: alert, in no apparent distress Course Vital Signs Temperature 98.8 F 11/09/17 13:36 Pulse Rate 69 11/09/17 13:36 Respiratory Rate 20 11/09/17 13:36 Blood Pressure 177/80 11/09/17 13:36 O2 Sat by Pulse Oximetry 86 11/09/17 13:36 Temperature 98.8 F 11/09/17 13:43 Pulse Rate 69 11/09/17 14:36 Respiratory Rate 20 11/09/17 13:43 Blood Pressure 178/70 11/09/17 14:36 O2 Sat by Pulse Oximetry 91 11/09/17 14:36 Oxygen Delivery Oxygen Delivery Nasal Cannula Medical Decision Making - Lab Data Result diagrams: 11/09/17 14:39 11/09/17 13:39 Lab Results 11/09/17 11/09/17 11/09/17 Range/Units 13:39 13:39 14:39 WBC 6.9 (4.3-11.1) K/mcL RBC 4.11 (3.82-4.97) M/mcL Hgb 12.9 (11.5-15.4) g/dL Hct 39.7 (35.3-44.9) % MCV 96.6 (83.0-100.0) fL MCH 31.4 (28.0-33.3) pg MCHC 32.5 (31.6-35.5) g/dL RDW 14.4 (11.5-14.5) % Plt Count 259 (140-400) K/mcL MPV 9.3 L (9.4-12.4) fL Immature Gran % 0.4 (0-4) % Seg Neutrophils % 66.9 % Lymphocytes % 23.1 % Monocytes % 5.6 % Eosinophils % 3.6 % Basophils % 0.4 % Neutrophils # 4.6 (1.6-8.9) K/mcL Lymphocytes # 1.6 (0.6-4.6) K/mcL Monocytes # 0.4 (0.0-1.3) K/mcL Eosinophils # 0.3 (0.0-0.6) K/mcL Basophils # 0.0 (0.0-0.2) K/mcL Sodium 141 (136-145) mEq/L Potassium 3.7 (3.5-5.1) mEq/L Chloride 105 (98-107) mEq/L Carbon Dioxide 29 (23-29) mEq/L BUN 16 (8-23) mg/dL Creatinine 0.74 (0.60-1.20) mg/dL Est GFR ( Amer) > 60 (> 60) Est GFR (Non-Af Amer) > 60 (> 60) BUN/Creatinine Ratio 22 (6-26) Glucose 89 (70-105) mg/dL Calculated Osmolality 293 (280-300) Calcium 9.5 (8.6-10.3) mg/dL Troponin I < 0.03 (< 0.04) ng/mL B-Natriuretic Peptide 345 H (Less than 100) pg/mL Attestation Statement - Attestation Attestation: I, Rene James DO, examined this patient [id number] and my medical decision-making was reviewed with Dr. Rohit Giles, Resident Physician. I agree with the documented findings, disposition and treatment plan as described except to the extent set forth below. Please see my progress notes for details. 87-year-old female presents emergency room with complaint of orthopnea over the last 2 weeks. Patient denies any fevers or chills chest pain headache vision changes nausea vomiting or diarrhea. Patient said the symptoms only at night when she lies flat. During the day she feels completely normal. She is also noted some bilateral swelling her legs. She has no specific history of congestive heart failure. She does not have any cardiac disease or illness. Patient is concerning for congestive heart failure versus fluid overload at this time. Her lungs are clear her heart is regular abdomen is soft nontender nondistended no guarding no rigidity no peritoneal symptoms. Patient's vital signs are stable except for hypoxia on room air. Patient does not typically use oxygen. Patient is going to have detailed workup with chest x-ray EKG CBC chemistry BNP and troponin collected here in the emergency room along with urinalysis. Patient does not require any emergent intervention at this point will watch closely and then definitive management will be determined. Patient is otherwise clinically stable. See detailed documentation of the physical exam , medical intervention, medical decision-making and disposition the resident physician's note. [id number] Patient has what appears to be pulmonary congestion or possible effusion. Patient's BNP is slightly elevated. EKG and troponin are unremarkable. Patient was given single dose of Lasix here for what appears to be congestive heart failure-like presentation with no specific diagnoses in the past. Patient will be admitted for definitive management. Hospitalist Dr. pacheco reviewed the patient's presentation symptoms. Phone and no other recommendations or concerns. Patient is stable medical condition with [address] at the time of admission. No critical care applied.
[2017-11-09 14:58] LABS: Basophils % 0.4 %; Eosinophils # 0.3 K/mcL (0.0-0.6); Eosinophils % 3.6 %; Hematocrit 39.7 % (35.3-44.9); Hemoglobin 12.9 g/dL (11.5-15.4); Immature Granulocytes % 0.4 % (0-4); Lymphocytes # 1.6 K/mcL (0.6-4.6); Lymphocytes % 23.1 %; Mean Corpuscular HGB Conc 32.5 g/dL (31.6-35.5); Mean Corpuscular Hemoglobin 31.4 pg (28.0-33.3); Mean Corpuscular Volume 96.6 fL (83.0-100.0); Mean Platelet Volume 9.3 fL (9.4-12.4); Monocytes # 0.4 K/mcL (0.0-1.3); Monocytes % 5.6 %; Neutrophils # 4.6 K/mcL (1.6-8.9); Platelet Count 259 K/mcL (140-400); Red Blood Count 4.11 M/mcL (3.82-4.97); Red Cell Distribution Width 14.4 % (11.5-14.5); Segmented Neutrophils % 66.9 %
[2017-11-09 15:07] LABS: BUN/Creatinine Ratio 22 (6-26); Blood Urea Nitrogen 16 mg/dL (8-23); Calcium 9.5 mg/dL (8.6-10.3); Carbon Dioxide 29 mEq/L (23-29); Chloride 105 mEq/L (98-107); Glucose 89 mg/dL (70-105); Osmolality,Calculated 293 (280-300); Potassium 3.7 mEq/L (3.5-5.1); Sodium 141 mEq/L (136-145); eGFR For Non-African Americans > 60 (> 60)
[2017-11-09 15:10] LABS: Troponin I < 0.03 ng/mL (< 0.04)
[2017-11-09] MEDS ORDERED: Furosemide 40 MG/4 ML VIAL IVP ONE (15:15)
[2017-11-09] MEDS ORDERED: *HR* HYDROcodone/Acet 5/325 mg TABLET PO PRN (16:50)
[2017-11-09] MEDS ORDERED: Acetaminophen 325 MG TABLET PO PRN (16:50)
[2017-11-09] MEDS ORDERED: Naloxone 0.4 MG/ML INJ IVP PRN (16:50)
--- NOTE | 2017-11-09 17:09 | Internal Med History&Physical ---
Date of Encounter: 11/09/17 Time of Encounter: 17:01 Internal Medicine - H&P: HPI Chief complaint: sob Admitted From: Emergency Dept Plans for Post Hospital Care: Home History of present illness: Ms. Magana is a 87 year old female Past medical hx of HTN hypoparathyroidism - According to the patient approx 2 weeks ago her PCP took her off her BP med which included a diuretic Amiloride -HCTZ Since this time she has noticed that she has been experiencing orthopnea as well as lower extremity swelling. She denies any CP or dyspnea on exertion. She does not have any past cardiac hx or hx of CHF. She denies any fever chills N/V/D. She presented to the ED with the above complaints. ON resentation she did have hypoxia on RA 86%- She was placed on 2 lnc which improved sats- CXR did show small pleural effusion- She was given 40 mg lasix IV- She will be admitted for further workup and evaluation of CHF. Patient is hemodynamically stable at this time Past Med Surg Social Fam HX - Past Medical History Medical history: osteoporosis Additional medical history: Restless Leg Psychiatric history: no psych history - Past Surgical History Surgical History: cholecystectomy, hip replacement, hysterectomy, thyroidectomy Additional surgical history: hip x 2, broken lL ANKLE - Social History Smoking Status: Never smoker Smokeless Tobacco Status: No Alcohol use: none Drug use: none - Family History Mother Living Status: Hx Family Cardiac Disorders: Yes Hx Family Endocrine Disorder: Yes Internal Medicine - H&P: Meds Aspirin [Lo-Dose Aspirin EC] 81 mg PO DAILY 11/09/17 [History] Calcium Carbonate [Calcium] 600 mg PO DAILY 11/09/17 [History] Cholecalciferol (D-3) [Vitamin D] 1,000 unit PO 1200 11/09/17 [History] Cyanocobalamin (Vitamin B-12) [Vitamin B-12] 1,000 mcg PO 1200 11/09/17 [History ] Gabapentin [Neurontin] 300 mg PO HS 11/09/17 [History] HYDROcodone/Acet 5/325 mg [[place] 5-325 mg] 1 tab PO Q8H PRN 11/09/17 [History] Meloxicam [Meloxicam] 7.5 mg PO 1200 11/09/17 [History] Metoprolol XL (24 HR) Succ [Toprol Xl] 25 mg PO 1200 08/18/18 [History] Vit C/Vit E/Lutein/Min/[place]-3 [Ocuvite Softgel] 1 cap PO QPM 11/09/17 [History] 3 Allergy/AdvReac Type Severity Reaction Status Date / Time No Known Allergies Allergy Verified 03/18/17 10:30 All Systems PM: A 10-system review of systems was performed and is negative for pertinent findings except as documented above in the HPI. - Constitutional Constitutional: no chills, no fever(s), no night sweats - EENT Eyes: no change in vision, no discharge, no pain, no photophobia Ears: no ear discharge, no ear pain, no tinnitus Nose, mouth and throat: no dysphagia, no nasal discharge, no neck pain, no sore throat - Cardiovascular Cardiovascular ROS IM: edema, orthopnea, no chest pain, no diaphoresis, no dyspnea, no lightheadedness, no palpitations, no syncope - Respiratory Respiratory: no cough, no dyspnea, no wheezing, no excessive phlegm production - Gastrointestinal Gastrointestinal: early satiety, no abdominal pain, no diarrhea, no hematemesis , no hematochezia, no melena, no nausea, no vomiting - Genitourinary Genitourinary: no change in urinary stream, no dysuria, no flank pain, no hematuria - Musculoskeletal Musculoskeletal ROS IM: no numbness, no tingling - Integumentary Integumentary IM: no rash, no unusual bruising - Neurological Neurological ROS: no confusion, no convulsions, no focal weakness, no numbness, no tingling, no tremor(s) - Constitutional Vitals: Temp Pulse Resp BP Pulse Ox 98.8 F 65 18 189/89 95 11/09/17 13:43 11/09/17 15:35 11/09/17 16:28 11/09/17 16:28 11/09/17 15:35 General appearance: Present: A&O X 3 - Head Head exam: Present: atraumatic, normocephalic - Eye Eye exam: Present: PERRL, conjuntiva pink, sclera anicteric Pupils: Present: PERRL - Neck Neck exam general surgery: Present: supple, trachea midline. Absent: lymphadenopathy - Respiratory Respiratory exam: Present: CTAB. Absent: accessory muscle use, rales, rhonchi, wheezes - Cardiovascular Cardiovascular exam: Present: RRR, +S1, +S2. Absent: diastolic murmur, gallop, rubs, systolic murmur - GI/Abdominal GI/Abdominal exam: Present: normal bowel sounds, soft, no peritoneal signs. Absent: distended, tenderness - Extremities Exam Extremities exam: Present: pedal edema, warm, radial pulses palpable and symmetrical. Absent: calf tenderness, cyanotic - Neurological Exam Neurological exam: Present: CN II-XII intact, oriented X3, no focal deficits. Absent: pronater drift, facial droop, speech deficit - Skin Skin exam: Present: dry, intact Internal Med - H&P Results - Labs CBC & Chem 7: 11/09/17 14:39 11/09/17 13:39 - EKG Data Prior EKG available for review: yes Interpretation IM: normal EKG - Diagnostic Studies Chest x-ray Additional comments: Chest X-Ray 11/09/17 13:39 IMPRESSION: Small pleural effusions with bibasilar atelectasis. D/ / Juan Jose Romo MD / Juan Jose Romo MD Interpreting Provider: Juan Jose Romo MD - Assessment and plan (1) CHF exacerbation Current Visit: Yes Status: Acute Assessment and plan: Patient presented to the ED after expereincing orthopnea nad lower extremity after being taken of diuretic 2 weeks ago by PCP. we will cont to diuresis the patient - she received 40 of lasix in the ED we will cont lasix at 20mg po daily monitor I/O daily weight low sodium diet we will check ECHO we will get a CT of chest r/o malignancy dt SOB Qualifiers: Heart failure type: unspecified Qualified Code(s): I50.9 - Heart failure, unspecified (2) HTN (hypertension) Current Visit: Yes Status: Acute Assessment and plan: 1 Recently had change in BP meds -we will cont with metoprolol - cont to monitor Qualifiers: Hypertension type: essential hypertension Qualified Code(s): I10 - Essential (primary) hypertension (3) DVT prophylaxis Current Visit: Yes Status: Acute Assessment and plan: 1 Lovenox (4) Acute respiratory failure with hypoxia Current Visit: No Status: Acute - Time Spent With Patient Total time spent is greater than 50% in coordination of care (as documented) at patient's floor/unit and/or counseling patient:
[2017-11-09] MEDS: (Ocuvite Softgel) PO SCH (18:11)
[2017-11-09] MEDS: Gabapentin 300 MG CAPSULE PO SCH (20:14)
[2017-11-10 04:30] LABS: Basophils % 0.5 %; Eosinophils # 0.3 K/mcL (0.0-0.6); Eosinophils % 4.7 %; Hematocrit 40.9 % (35.3-44.9); Hemoglobin 13.3 g/dL (11.5-15.4); Immature Granulocytes % 0.8 % (0-4); Lymphocytes # 1.5 K/mcL (0.6-4.6); Lymphocytes % 22.9 %; Mean Corpuscular HGB Conc 32.5 g/dL (31.6-35.5); Mean Corpuscular Hemoglobin 31.2 pg (28.0-33.3); Mean Platelet Volume 9.3 fL (9.4-12.4); Monocytes # 0.5 K/mcL (0.0-1.3); Monocytes % 8.3 %; Platelet Count 258 K/mcL (140-400); Red Blood Count 4.26 M/mcL (3.82-4.97); Red Cell Distribution Width 14.3 % (11.5-14.5); Segmented Neutrophils % 62.8 %
[2017-11-10 04:52] LABS: Troponin I < 0.03 ng/mL (< 0.04)
[2017-11-10 04:54] LABS: BUN/Creatinine Ratio 22 (6-26); Blood Urea Nitrogen 15 mg/dL (8-23); Calcium 9.2 mg/dL (8.6-10.3); Carbon Dioxide 33 mEq/L (23-29); Chloride 101 mEq/L (98-107); Glucose 82 mg/dL (70-105); Magnesium 1.8 mg/dL (1.6-2.6); Osmolality,Calculated 296 (280-300); Potassium 2.9 mEq/L (3.5-5.1); Sodium 143 mEq/L (136-145); eGFR For Non-African Americans > 60 (> 60)
[2017-11-10] MEDS ORDERED: *HR* Enoxaparin 40 MG/0.4 ML SYRINGE SQ SCH (07:00)
[2017-11-10] MEDS ORDERED: Furosemide 20 MG TABLET PO SCH (09:00)
[2017-11-10] MEDS: Aspirin Enteric Coated 81 MG Tablet PO SCH (10:25)
--- NOTE | 2017-11-10 10:31 | Internal Med Progress Note ---
Hospitalist Progress Note - Encounter Date of Encounter: 11/10/17 Time of Encounter: 10:00 - Subjective Interval History: No acute events overnight - Exam Vitals: Temp Pulse Resp BP Pulse Ox 98.3 F 68 16 136/74 91 11/10/17 07:30 11/10/17 07:30 11/10/17 07:30 11/10/17 07:30 11/10/17 07:30 Exam: Gen - Awake, alert, oriented x 3, no acute distress HEENT - NCAT, PERRLA, EOMI, hearing grossly intact, oropharynx benign CV - RRR, normal S1 and S2, no M/R/G, no BLE edema Resp - Normal WOB, CTAB, no W/R/R GI - Soft, NT/ND, no masses, normal bowel sounds, no HSP Skin - Warm, dry, no rashes/lesions/ulcers Psych - Normal mood and affect, no depression or anxiety - Assessment and Plan (1) Acute respiratory failure with hypoxia Current Visit: No Status: Acute Assessment and Plan: Likely secondary to Acute CHF and community acquired pneumonia. Continue lasix, start on levaquin. Follow up 2d echo (2) CHF exacerbation Current Visit: Yes Status: Acute Assessment and Plan: Patient presented to the ED after expereincing orthopnea and lower extremity after being taken of diuretic 2 weeks ago by PCP. we will continue to diurese the patient - she received 40 of lasix in the ER and we will continue lasix 40mg IV daily daily weight low sodium diet we will check ECHO (3) Community acquired pneumonia Current Visit: Yes Status: Acute Assessment and Plan: Ct chest showed bibasilar opacities. Will start on levaquin (4) HTN (hypertension) Current Visit: Yes Status: Acute Assessment and Plan: 1 Recently had change in BP meds -we will cont with metoprolol - cont to monitor (5) DVT prophylaxis Current Visit: Yes Status: Acute Assessment and Plan: 1 Lovenox - Time Spent with Patient Total time spent is greater than 50% in coordination of care (as documented) at patient's floor/unit and/or counseling patient: Internal Medicine: Result - Labs CBC & Chem 7: 11/10/17 03:57 11/10/17 03:57 Labs: Short CBC 11/10/17 Range/Units 03:57 WBC 6.4 (4.3-11.1) K/mcL Hgb 13.3 (11.5-15.4) g/dL Hct 40.9 (35.3-44.9) % Plt Count 258 (140-400) K/mcL Neutrophils # 4.0 (1.6-8.9) K/mcL BMP 11/10/17 03:57 Sodium 143 Potassium 2.9 L Chloride 101 Carbon Dioxide 33 H BUN 15 Creatinine 0.67 Glucose 82 Calcium 9.2 Cardiac Enzymes 11/10/17 Range/Units 03:57 Troponin I < 0.03 (< 0.04) ng/mL - Impressions Impressions Chest CT 11/09/17 16:54 IMPRESSION: 1. Bibasilar consolidative opacities likely representing atelectasis with pneumonia not excluded. 2. Small nonspecific pericardial effusion new from 03/18/2017. 3. 3.4 cm hypodense right thyroid nodule increased in size from the previous exam. Recommend further evaluation with thyroid ultrasound. Managing Incidental Thyroid Nodule Detected at CT or MRI or US 1. Further evaluation by thyroid Ultrasound recommended for these incidental nodules: Patient Age 18 years or less - Nodule of any size Patient Age 19-34 years old - Nodule 1 cm in size or greater Patient Age 35 years or more - Nodule 1.5 cm in size or greater 2. Follow up thyroid ultrasound also recommend in these scenarios - Solitary nodule with high risk imaging features (locally invasive nodule or suspicious lymph nodes) - Heterogeneous, enlarged thyroid gland. - Increased uptake on PET 3. No further imaging is recommended in the following scenarios - Any nodule not meeting above criteria. - Those patients with limited life expectancy or significant Co-morbidities. Note: These recommendations do not apply to pts. w/ increased risk for thyroid cancer or pts. with symptomatic thyroid disease. Recommendations for f/u of Incidental Thyroid Nodules (ITN) found on CT, MR, NM and Extrathyroidal US are based upon the ACR white paper and Srinivasan 3-tiered system for managing ITNs: J Am Areli Radiol. 2015 Apr;12(2): 143-50 D/ / Mohsen Perla MD / Mohsen Perla MD Interpreting Provider: Mohsen Perla MD Consult Discharge Plan - Plan Referrals: Angle Mendez, RECRUIT INSTRUCTOR [Primary Care Provider] - (2) CHF exacerbation Qualifiers: Heart failure type: unspecified Qualified Code(s): I50.9 - Heart failure, unspecified (4) HTN (hypertension) Qualifiers: Hypertension type: essential hypertension Qualified Code(s): I10 - Essential (primary) hypertension
[2017-11-10] MEDS ORDERED: Levofloxacin 750 MG/150 ML 750 MG/150 ML BAG IVPB SCH (11:00)
[2017-11-10] MEDS: Potassium Chloride Elixir 20 MEQ/15 ML UDC PO SCH ×2 (12:38→17:00)
[2017-11-10] MEDS: Cyanocobalamin (B-12) 1,000 MCG TABLET PO SCH (12:39)
[2017-11-10] MEDS: Metoprolol XL (24 HR) Succ 25 MG TAB.ER.24H PO SCH (12:39)
[2017-11-10] MEDS: Furosemide 40 MG/4 ML VIAL IVP SCH (12:41)
[2017-11-10] MEDS: Cholecalciferol (D-3) 1,000 UNIT TABLET PO SCH (12:43)
[2017-11-10] MEDS: (Ocuvite Softgel) PO SCH (15:56)
[2017-11-10] MEDS: Gabapentin 300 MG CAPSULE PO SCH (20:28)
[2017-11-11 04:48] LABS: Basophils % 0.6 %; Eosinophils # 0.2 K/mcL (0.0-0.6); Eosinophils % 2.7 %; Hematocrit 43.8 % (35.3-44.9); Hemoglobin 13.9 g/dL (11.5-15.4); Immature Granulocytes % 0.6 % (0-4); Lymphocytes # 1.5 K/mcL (0.6-4.6); Lymphocytes % 22.4 %; Mean Corpuscular HGB Conc 31.7 g/dL (31.6-35.5); Mean Corpuscular Hemoglobin 30.5 pg (28.0-33.3); Mean Corpuscular Volume 96.1 fL (83.0-100.0); Mean Platelet Volume 8.9 fL (9.4-12.4); Monocytes # 0.6 K/mcL (0.0-1.3); Monocytes % 9.4 %; Neutrophils # 4.3 K/mcL (1.6-8.9); Platelet Count 259 K/mcL (140-400); Red Blood Count 4.56 M/mcL (3.82-4.97); Red Cell Distribution Width 14.5 % (11.5-14.5); Segmented Neutrophils % 64.3 %
[2017-11-11 05:06] LABS: BUN/Creatinine Ratio 19 (6-26); Blood Urea Nitrogen 19 mg/dL (8-23); Calcium 9.4 mg/dL (8.6-10.3); Carbon Dioxide 37 mEq/L (23-29); Chloride 101 mEq/L (98-107); Glucose 90 mg/dL (70-105); Magnesium 1.8 mg/dL (1.6-2.6); Osmolality,Calculated 298 (280-300); Sodium 143 mEq/L (136-145); eGFR For Non-African Americans 52 (> 60)
[2017-11-11] MEDS ORDERED: *HR* Enoxaparin 30 MG/0.3 ML SYRINGE SQ SCH (06:00)
[2017-11-11] MEDS: Furosemide 40 MG/4 ML VIAL IVP SCH (08:56)
[2017-11-11] MEDS: Aspirin Enteric Coated 81 MG Tablet PO SCH (08:56)
[2017-11-11 11:04] VITALS: BP 103/61
[2017-11-11] MEDS: Metoprolol XL (24 HR) Succ 25 MG TAB.ER.24H PO SCH (11:48)
[2017-11-11] MEDS: Cholecalciferol (D-3) 1,000 UNIT TABLET PO SCH (11:48)
[2017-11-11] MEDS: Cyanocobalamin (B-12) 1,000 MCG TABLET PO SCH (11:48)
--- NOTE | 2017-11-11 12:43 | Discharge Summary ---
Orders not resulted at time of discharge: Pending orders 11/12/17 04:00 Basic Metabolic Panel AM 0400 CBC [Complete Blood Count] [HEME] AM 0400 Magnesium AM 0400 Phosphorous AM 0400 11/13/17 04:00 Basic Metabolic Panel AM 0400 CBC [Complete Blood Count] [HEME] AM 0400 Magnesium AM 0400 Phosphorous AM 0400 11/14/17 04:00 Basic Metabolic Panel AM 0400 CBC [Complete Blood Count] [HEME] AM 0400 Magnesium AM 0400 Phosphorous AM 0400 11/15/17 04:00 Basic Metabolic Panel AM 0400 CBC [Complete Blood Count] [HEME] AM 0400 Magnesium AM 0400 Phosphorous AM 0400 11/16/17 04:00 Basic Metabolic Panel AM 0400 CBC [Complete Blood Count] [HEME] AM 0400 Magnesium AM 0400 Phosphorous AM 0400 Date of Encounter: 11/11/17 Time of Encounter: 12:30 - Discharge Diagnosis (1) Acute respiratory failure with hypoxia Priority: Primary Status: Acute Assessment and Plan: 87 year old female Past medical hx of HTN hypoparathyroidism - According to the patient approx 2 weeks ago her PCP took her off her BP med which included a diuretic Amiloride -HCTZ Since this time she has noticed that she has been experiencing orthopnea as well as lower extremity swelling. She denies any CP or dyspnea on exertion. She denies any history of CHF. She was noted to be desaturating to 86% on room air on admission. CT scan on admission showed bibasilar consolidative opacities and cxr showed small pleural effusions. She was assessed with acute hypoxic respiratory failure likely secondary to a comobination of community acquired pneumoni and acute CHF. She was started on lasix and IV antibiotics . A 2D echo showed diastolic dysfunction. She had clinically improved by the next day and was discharged home on lasix and a course of levaquin. She remained hypoxic and qualified for home oxygen based on her sats while walking which is likely due to her diastolic cHF and pneumonia. She was discharged in a stable condition (2) CHF exacerbation Priority: Primary Status: Acute Qualifiers: Heart failure type: diastolic Qualified Code(s): I50.33 - Acute on chronic diastolic (congestive) heart failure (3) Community acquired pneumonia Priority: Primary Status: Acute Qualifiers: Qualified Code(s): J18.9 - Pneumonia, unspecified organism (4) HTN (hypertension) Priority: Secondary Status: Acute Qualifiers: Hypertension type: essential hypertension Qualified Code(s): I10 - Essential (primary) hypertension (5) DVT prophylaxis Priority: Secondary Status: Acute Hospital course: Ms. Magana is a 87 year old female - Time Spent with Patient Total time spent providing and/or coordinating discharge services: - Discharge Medications Prescriptions: Furosemide [Lasix] 20 mg PO DAILY #30 tablet levoFLOXacin [Levaquin] 500 mg PO DAILY 2 Days #2 tablet Home Medications: Aspirin [Lo-Dose Aspirin EC] 81 mg PO DAILY 11/09/17 [History] Calcium Carbonate [Calcium] 600 mg PO DAILY 11/09/17 [History] Cholecalciferol (D-3) [Vitamin D] 1,000 unit PO 1200 11/09/17 [History] Cyanocobalamin (Vitamin B-12) [Vitamin B-12] 1,000 mcg PO 1200 11/09/17 [History ] Gabapentin [Neurontin] 300 mg PO HS 11/09/17 [History] HYDROcodone/Acet 5/325 mg [[place] 5-325 mg] 1 tab PO Q8H PRN 11/09/17 [History] Meloxicam 7.5 mg PO 1200 11/09/17 [History] Metoprolol XL (24 HR) Succ [Toprol Xl] 25 mg PO 1200 11/09/17 [History] Vit C/Vit E/Lutein/Min/[place]-3 [Ocuvite Softgel] 1 cap PO QPM 11/09/17 [History] Furosemide [Lasix] 20 mg PO DAILY #30 tablet 11/11/17 [Rx] levoFLOXacin [Levaquin] 500 mg PO DAILY 2 Days #2 tablet 11/11/17 [Rx] Allergies/Adverse Reactions: 3 Allergy/AdvReac Type Severity Reaction Status Date / Time No Known Allergies Allergy Verified 03/18/17 10:30 Date of admission: 11/09/17 15:40 Primary care physician: Angle Mendez CNP Consults: 11/11/17 08:58 Consult to Nurse Navigator [CONS] Routine Comment: CHF - Constitutional Vitals: Temp Pulse Resp BP Pulse Ox 97.7 F 62 16 103/61 90 11/11/17 11:03 11/11/17 11:03 11/11/17 11:03 11/11/17 11:03 11/11/17 11:03 General appearance: Present: A&O X 3 Exam: Gen - Awake, alert, oriented x 3, no acute distress HEENT - NCAT, PERRLA, EOMI, hearing grossly intact, oropharynx benign CV - RRR, normal S1 and S2, no M/R/G, no BLE edema Resp - Normal WOB, CTAB, no W/R/R GI - Soft, NT/ND, no masses, normal bowel sounds, no HSP Skin - Warm, dry, no rashes/lesions/ulcers Psych - Normal mood and affect, no depression or anxiety - Head Head exam: Present: atraumatic, normocephalic - Eye Eye exam: Present: PERRL, conjuntiva pink, sclera anicteric Pupils: Present: PERRL - Neck Neck exam general surgery: Present: supple, trachea midline. Absent: lymphadenopathy - Respiratory Respiratory exam: Present: CTAB. Absent: accessory muscle use, rales, rhonchi, wheezes - Cardiovascular Cardiovascular exam: Present: RRR, +S1, +S2. Absent: diastolic murmur, gallop, rubs, systolic murmur - GI/Abdominal GI/Abdominal exam: Present: normal bowel sounds, soft, no peritoneal signs. Absent: distended, tenderness - Extremities Exam Extremities exam: Present: warm, radial pulses palpable and symmetrical. Absent : calf tenderness, cyanotic, pedal edema - Neurological Exam Neurological exam: Present: CN II-XII intact, oriented X3, no focal deficits. Absent: pronater drift, facial droop, speech deficit - Skin Skin exam: Present: dry, intact - Patient Status Disposition: Home, Self-Care Condition: Good - Discharge Instructions Instructions: Furosemide (By mouth), Levofloxacin (By mouth), Heart Failure (DC ), Using Oxygen at Home (DC), Pneumonia (DC) Follow Up With: Angle Mendez CNP [Primary Care Provider] - 11/20/17 10:35 am ()
--- NOTE | 2017-11-11 15:12 | Electrocardiograph Report ---
[address] [address] Test Date: 2017-11-09 Pat Name: Emmy Magana Department: Room: 3B Gender: F Freelance Copywriter: : 1930 Requested By: Rohit Giles Order Number: [id number] Reading MD: Ector Moss Measurements Intervals [place] Rate: 66 P: 13 LA: 213 QRS: -6 QRSD: 90 T: 26 QT: 401 QTc: 421 Interpretive Statements Sinus rhythm Borderline prolonged LA interval Electronically Signed On 11-11-2017 15:11:34 EDT by Ector Moss
== END 2017-11-11 16:38 | disposition home or self-care (01) ==
LOC: 3BNU 13:35 → EMEROOARM 13:35 → 3BNU 17:06
PROVIDERS: ADMIT Internal Medicine; ATTEND Internal Medicine